=== PATIENT | female | born 2000 | race Caucasian/White ===

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

== ENCOUNTER 2021-10-15 11:15 | Emergency (ER) | payer OTHER ==
[~2021-10-15] VITALS: Wt 95.3 kg
[~2021-10-15 11:15] MED LIST changes: +INTUNIV1 MG PO; +LEXAPRO20 MG PO; +LILLOW-28 TABL1 EACH PO; +MACROBID100 M1 PO; +PYRIDIUM200 M1 PO; +VISTARIL25 MG PO
[2021-10-15] MEDS ORDERED: VIBRAMYCIN100 MG PO (11:48)
[2021-10-15 11:57] LABS: BILIRUBIN Negative (Negative); BLOOD Negative (Negative); CLARITY Cloudy (Clear); COLOR Yellow (Yellow); GLUCOSE Negative (Negative); KETONE Trace (Negative); LEUKO ESTERASE Negative (Negative); NITRITE Negative (Negative); SPECIFIC GRAVITY >= 1.030 (1.001-1.030); UROBILINOGEN 0.2 E.U./dl (0.0-1.0)
[2021-10-15 12:23] LABS: EPITHELIAL CELLS 21-30
[2021-10-15 12:24] LABS: BACTERIA 3+
== END 2021-10-15 13:29 | disposition home or self-care (01) ==
LOC: ED 11:15
PROVIDERS: Nurse Practitioner Family
DX: A64 Unspecified sexually transmitted disease (principal)

== ENCOUNTER 2021-10-25 22:52 | Emergency (ER) | payer OTHER ==
[~2021-10-25] VITALS: Ht 167.6 cm; Wt 99.8 kg
[~2021-10-25 22:52] MED LIST changes: +VIBRAMYCIN100 MG PO
== END 2021-10-26 02:20 | disposition home or self-care (01) ==
LOC: ED 22:52
DX: T74.21XA Adult sexual abuse, confirmed, initial encounter (principal); Y92.89 Other specified places as the place of occurrence of the external cause

== ENCOUNTER 2023-04-28 20:37 | Emergency (ER) | payer SELFPAY ==
[~2023-04-28] VITALS: Ht 167.6 cm; Wt 108.9 kg
[2023-04-28] MEDS ORDERED: AMOX-CLAV 875-1 EACH PO (21:00)
== END 2023-04-28 21:13 | disposition home or self-care (01) ==
LOC: ED 20:37
DX: H66.91 Otitis media, unspecified, right ear (principal); F90.9 Attention-deficit hyperactivity disorder, unspecified type; D64.9 Anemia, unspecified; F31.9 Bipolar disorder, unspecified

== ENCOUNTER 2023-05-04 20:50 | Emergency (ER) | payer SELFPAY ==
[~2023-05-04 20:50] MED LIST changes: +AMOX-CLAV 875-1 EACH PO
[2023-05-04 21:29] LABS: BASO # 0.1 10*3/uL (0.0-0.1); BASO % 0.5 % (0.0-1.0); EOS # 0.1 10*3/uL (0.0-0.4); EOS % 1.1 % (1.0-4.0); HEMATOCRIT 41.7 % (37.0-47.0); LYMPH # 2.8 10*3/uL (1.3-4.4); LYMPH % 26.9 % (27.0-41.0); MEAN CELL VOLUME 94.1 fl (81.0-99.0); MEAN CORPUSCULAR HGB 30.7 pg (27.0-31.0); MEAN CORPUSCULAR HGB CONC 32.6 g/dl (33.0-37.0); MEAN PLATELET VOLUME 8.9 fl (9.6-12.3); MONO # 0.6 10*3/uL (0.1-1.0); MONO % 5.9 % (3.0-9.0); NEUT # 6.9 10*3/uL (2.3-7.9); NEUT % 64.9 % (47.0-73.0); PLATELET COUNT AUTOMATED 449 10*3/uL (130-400); RED BLOOD COUNT 4.43 10*6/uL (4.10-5.10); RED CELL DISTRI WIDTH 12.3 % (0-14.5); WHITE BLOOD COUNT 10.6 10*3/uL (4.8-10.8)
[2023-05-04 21:38] LABS: BILIRUBIN Negative (Negative); BLOOD Negative (Negative); CLARITY Clear (Clear); COLOR Yellow (Yellow); GLUCOSE Negative (Negative); KETONE Trace (Negative); LEUKO ESTERASE Negative (Negative); NITRITE Negative (Negative); PH 6.5 (4.5-8.0); SPECIFIC GRAVITY >= 1.030 (1.001-1.030)
[2023-05-04 21:49] LABS: ALKALINE PHOSPHATASE 92 U/L (46-116); BUN 10 mg/dl (9-23); CHLORIDE 107 mmol/L (98-107); POTASSIUM 3.7 mmol/L (3.4-5.1); SGPT/ALT 45 U/L (5-49); TOTAL PROTEIN 7.8 gm/dL (6.0-8.0)
[2023-05-04 21:53] LABS: BACTERIA 1+; EPITHELIAL CELLS 21-30; WBC 0-2 wbc/hpf (0-5)
[2023-05-04 21:54] LABS: BETA-HCG, QUANT < 3.0 mIU/mL (3-10)
== END 2023-05-04 22:20 | disposition home or self-care (01) ==
LOC: ED 20:50
PROVIDERS: Nurse Practitioner Family
DX: Z32.02 Encounter for pregnancy test, result negative (principal); N93.9 Abnormal uterine and vaginal bleeding, unspecified; R10.32 Left lower quadrant pain; F31.9 Bipolar disorder, unspecified; R10.2 Pelvic and perineal pain

== ENCOUNTER 2023-11-21 23:01 | Emergency (ER) | payer OTHER ==
[~2023-11-21] VITALS: Ht 167.6 cm; Wt 108.9 kg
[2023-11-21] MEDS ORDERED: NEO/POLYMYX B SULF/DEXAMETH 200 DRP BOT OT ONE (23:20)
[2023-11-21] MEDS ORDERED: IBUPROFEN 800 MG TAB PO ONE (23:20)
[2023-11-21] MEDS ORDERED: Acetaminophen/Oxycodone 5 MG/325 MG TABLET PO ONE (23:20)
[2023-11-21] MEDS ORDERED: CORTISPORIN SUS10 ML OT (23:22)
[2023-11-21] MEDS ORDERED: AMOX-CLAV 875-1 EACH PO (23:22)
== END 2023-11-21 23:25 | disposition home or self-care (01) ==
LOC: ED 23:01
DX: H60.91 Unspecified otitis externa, right ear (principal); F32.A Depression, unspecified

== ENCOUNTER 2024-06-09 19:23 | Emergency (ER) | payer SELFPAY ==
[~2024-06-09] VITALS: Ht 167.6 cm; Wt 108.9 kg
[~2024-06-09 19:23] MED LIST changes: +CORTISPORIN SUS10 ML OT
[2024-06-09 20:08] LABS: BILIRUBIN Negative (Negative); BLOOD Negative (Negative); CLARITY Clear (Clear); COLOR Yellow (Yellow); GLUCOSE Negative (Negative); KETONE Negative (Negative); LEUKO ESTERASE Negative (Negative); NITRITE Negative (Negative); PH 6.5 (4.5-8.0); SPECIFIC GRAVITY 1.015 (1.001-1.030); UROBILINOGEN 0.2 E.U./dl (0.0-1.0)
[2024-06-09] MEDS ORDERED: METHOCARBAMOL500 M1 PO (20:20)
[2024-06-09] MEDS ORDERED: NAPROXEN250 MG PO (20:20)
[2024-06-09] MEDS ORDERED: Ketorolac Tromethamine 60 MG/2 ML VIAL IM ONE (20:20)
[2024-06-09] MEDS ORDERED: METHOCARBAMOL 500 MG TAB PO ONE (20:20)
[2024-06-09 20:37] LABS: BACTERIA 1+
== END 2024-06-09 20:57 | disposition home or self-care (01) ==
LOC: ED 19:23
PROVIDERS: Internal Medicine
DX: S29.012A Strain of muscle and tendon of back wall of thorax, initial encounter (principal); M54.50 Low back pain, unspecified; F31.9 Bipolar disorder, unspecified; X58.XXXA Exposure to other specified factors, initial encounter; Y93.89 Activity, other specified; Y92.009 Unspecified place in unspecified non-institutional (private) residence as the place of occurrence of the external cause; Y99.8 Other external cause status

== ENCOUNTER 2025-01-20 20:03 | Emergency (ER) | payer OTHER ==
[~2025-01-20] VITALS: Ht 162.5 cm; Wt 113.4 kg
[~2025-01-20 20:03] MED LIST changes: +METHOCARBAMOL500 M1 PO; +NAPROXEN250 MG PO
[2025-01-20 21:11] LABS: BILIRUBIN Negative (Negative); BLOOD Trace-Intact (Negative); CLARITY Clear (Clear); COLOR Yellow (Yellow); KETONE Negative (Negative); LEUKO ESTERASE 2+ (Negative); NITRITE Negative (Negative); PH 5.5 (4.5-8.0); SPECIFIC GRAVITY 1.020 (1.001-1.030); UROBILINOGEN 0.2 E.U./dl (0.0-1.0)
[2025-01-20 21:18] LABS: BACTERIA 1+; WBC 21-30 wbc/hpf (0-5)
[2025-01-20 21:19] LABS: MUCOUS TRACE
[2025-01-20] MEDS ORDERED: CEPHALEXIN500 M1 PO (21:41)
[2025-01-20] MEDS ORDERED: CEPHALEXIN 500 MG CAP PO ONE (21:45)
== END 2025-01-20 21:59 | disposition home or self-care (01) ==
LOC: ED 20:03
PROVIDERS: Nurse Practitioner Family
DX: O23.10 Infections of bladder in pregnancy, unspecified trimester (principal); N30.01 Acute cystitis with hematuria; O26.851 Spotting complicating pregnancy, first trimester; R10.33 Periumbilical pain; Z3A.08 8 weeks gestation of pregnancy